=== PATIENT | male | born 1950 | race Caucasian/White ===

== ENCOUNTER 2021-02-11 02:44 | Inpatient (IN) | payer MEDICARE ==
[~2021-02-11] VITALS: Ht 193 cm; Wt 126.7 kg
[~2021-02-11 02:44] MED LIST: ALBU3IS INH; ALBU90OI6; AMOCLA500 PO; ASPI81CH PO; ATOR80 PO; CLOP75 PO; DEXA4 PO; LEVFLO500 PO; LORA.5 PO; LOSA25 PO; METO50ER PO; Nitroglycerin0.4 MG SL; OMEP40CA12 PO; OXYC1L PO; Prednisone20 MG PO; RANI150 PO; Ventolin/Prove6.7 GM INH; Zithromax250 MG PO
[2021-02-11 03:04] LABS: BASOPHILS ABSOLUTE AUTO 0.05 K/mm3 (0.00-0.23); BASOPHILS PERCENT AUTO 1 % (0-2); EOSINOPHILS ABSOLUTE AUTO 0.08 K/mm3 (0.00-0.68); EOSINOPHILS PERCENT AUTO 1 % (0-6); Hematocrit 45.1 % (37.0-53.0); Hemoglobin 15.8 g/dL (13.5-17.5); IMMATURE GRAN ABSOLUTE AUTO 0.02 K/mm3 (0.00-0.10); IMMATURE GRAN PERCENT AUTO 0 % (0-1); LYMPHOCYTES ABSOLUTE AUTO 1.54 K/mm3 (0.84-5.20); LYMPHOCYTES PERCENT AUTO 24 % (21-46); MONOCYTES ABSOLUTE AUTO 0.86 K/mm3 (0.16-1.47); MONOCYTES PERCENT AUTO 13 % (4-13); Mean Corpuscular HGB 33.1 pg (26.0-34.0); Mean Corpuscular Volume 95 fL (80-100); Mean Platelet Volume 11.2 fL (9.1-12.4); NEUTROPHILS ABSOLUTE AUTO 3.92 K/mm3 (1.96-9.15); NEUTROPHILS PERCENT AUTO 61 % (41-73); Platelet Count 196 K/mm3 (150-400); RDW Coefficient Variation 12.3 % (11.7-14.2); RDW Standard Deviation 42.8 fL (35.1-46.3); Red Blood Cell Count 4.77 M/mm3 (4.30-5.90); White Blood Cell Count 6.47 K/mm3 (4.00-11.30)
[2021-02-11 03:25] LABS: Alanine Aminotransfer (ALT/SGP 47 U/L (12-78); Albumin, Blood 3.4 g/dL (3.4-5.0); Albumin/Globulin Ratio 0.9 (0.8-1.8); Alk Phos 88 U/L (50-136); Anion Gap 6 mmol/L (6-16); Aspartate Aminotrans (AST/SGOT 29 U/L (12-37); Bilirubin, Total 0.3 mg/dL (0.1-1.0); Blood Urea Nitrogen 17 mg/dL (8-24); Bun/Creatinine Ratio 21.7 (12.0-20.0); CO2, Blood 25 mmol/L (21-32); Calcium, Blood 9.2 mg/dL (8.5-10.1); Chloride, Blood 106 mmol/L (98-108); Creatinine, Blood 0.78 mg/dL (0.60-1.20); Globulin, Blood 3.8 g/dL (2.2-4.0); Glomerular Filtration Rate >60 (60-); Glucose, Blood 238 mg/dL (70-99); Potassium, Blood 4.2 mmol/L (3.5-5.5); Sodium, Blood 137 mmol/L (136-145); Total Protein, Blood 7.2 g/dL (6.4-8.2); Troponin I 0.059 ng/mL (0.000-0.040)
[2021-02-11 06:18] LABS: International Normalized Ratio 1.19; Prothrombin Time Results 12.4 Sec (9.7-11.5)
[2021-02-11 08:50] LABS: CHOL/HDL RATIO 6.1; Cholesterol 239 mg/dL (50-200); HDL Cholesterol 39 mg/dL (>39); LDL/HDL RATIO 4.5; Low Density Lipoprotein Chol 174 mg/dL (0-110); Triglycerides 130 mg/dL (30-160); Very Low Density Lipoprot Chol 26 mg/dL (6-32)
--- NOTE | 2021-02-11 11:35 | NUR ---
Echocardiogram completed.
--- NOTE | 2021-02-11 14:18 | NUR ---
Report received by phone from primary RN . She states that the pt will be going to the laboratory technical specialist before arriving in PCU 3.
[2021-02-11 15:29] LABS: Influenza A, PCR NEGATIVE (NEGATIVE); Influenza B, PCR NEGATIVE (NEGATIVE); Resp Syncytial Virus, PCR NEGATIVE (NEGATIVE); SARS-Cov-2 (COVID-19) PCR, MMC NEGATIVE (NEGATIVE)
--- NOTE | 2021-02-11 16:42 | NUR ---
Pt arrived from the ED, alert, oriented and cheerful. Able to stand and transfer from [facility] to the bed. States that activity makes his left arm and chest discomfort a little worse. Reports that it is a 6/10 at rest. No dyspnea, no hypoxia, no diaphoresis, no tachypnea. Vital signs are stable. aquatic laborer notified of negative covid test results. Left for angiogram , taken by BRITTA Austin from [facility].
--- NOTE | 2021-02-11 17:51 | NUR ---
Pt returned from the [facility] conservation laborer, right radial site with TR band. Site is without bruising, bleeding or evidence of hematoma. Pt c/o numbness in his right hand, so 1 CC air was removed from the TR band with Rocky from [facility] also present. No bleeding, no hematoma and pt states relief. pt states chest discomfort is about a 7/10, but that he is in no distress.
--- NOTE | 2021-02-11 18:42 | NUR ---
Pt c/o chest pain, 8/10. NO diaphoresis, no dyspnea. No cyanosis, no distress. Given morphine for relief, and pain improved to 6/10. Pt appears very calm and relaxed. No changes on telemetry were noted. Atrial fibrillation, rate 83 bpm. spo2 98% on room air.
--- NOTE | 2021-02-11 19:34 | NUR ---
Pt reported earlier that his chest pain was improved to 6/10; at the time of bedside report now he states that it is better and a 4/10. No nitroglycerin sublingually given, only morphine IV.
--- NOTE | 2021-02-12 01:32 | NUR ---
RIGHT RADIAL TR BAND WITH 13CC OF AIR UPON ASSUMPTION OF CARE AT START OF SHIFT. BEGAN WITH 2CC AIR REMOVAL @ 1914 AND NO SIGNS OF BLEEDING OR HEMATOMA. 2CC OUT OF BAND @1999 WITHOUT ISSUE. VSS. 3 MORE CC OUT AT 2134. 3 MORE OUT AT 2199. FINAL 3CC OF AIR REMOVED AT 0 AND TR BAND REMOVED AT 2300. TEGADERM APPLIED AND SITE IS C/D/I. SENSATION AND COLOR WNL. NO SIGNS OF BLEEDING OR HEMATOMA. ARMBOARD IN PLACE. HEPARIN RESUMED. WILL CONTINUE TO MONITOR SITE.
--- NOTE | 2021-02-12 06:09 | NUR ---
SHIFT SUMMARY PATIENT FOUND TO BE A PLESANT MAN WHO IS A&OX4, WITH SOME ANXIETY AND GENERALIZED WEAKNESS. TR BAND RECOVERED AND OFF BY 2300. SEE PREVIOUS NOTE FOR DETAILS. SITE REMAINS C/D/I WITH NO SIGNS OF BLEEDING OR HEMATOMA. ONE EPISODE OF CP THIS SHIFT 8/10 PAIN WITH GOOD RELIEF WITH MORPHINE. SR IN THE 80'S ON THE MONITOR. HYPERTENSIVE AT TIMES., TROP TRENDING DOWN. NPO AT MIDNIGHT FOR FEED MANAGER TODAY. ON RA. THICK SECRECTIONS AND PRODUCTIVE COUGH NOTED. PATIENT MANAGES OWN TRACH STOMA AN SUCTIONS HIMSELF PRN WITHOUT ISSUE. TOELRATING MECH SOFT DIET BUT POOR APPETITE. USING URINAL TO VOID BUT OFTEN SPILLS AND NEEDS ASSISTANCE. SBA IN ROOM. NO ACUTE CONCERNS AT THIS TIME. WILL CONTINUE PLAN OF CARE UNTIL REPORT GIVEN TO DAYSHIFT RN.
[2021-02-12 06:29] LABS: Hematocrit 46.5 % (37.0-53.0); Hemoglobin 16.2 g/dL (13.5-17.5); Mean Corpuscular HGB 33.5 pg (26.0-34.0); Mean Corpuscular HGB Conc 34.8 g/dL (31.5-36.5); Mean Corpuscular Volume 96 fL (80-100); Mean Platelet Volume 11.8 fL (9.1-12.4); Platelet Count 201 K/mm3 (150-400); RDW Coefficient Variation 12.6 % (11.7-14.2); RDW Standard Deviation 44.7 fL (35.1-46.3); Red Blood Cell Count 4.83 M/mm3 (4.30-5.90); White Blood Cell Count 5.89 K/mm3 (4.00-11.30)
[2021-02-12 08:01] LABS: Alanine Aminotransfer (ALT/SGP 50 U/L (12-78); Albumin, Blood 3.1 g/dL (3.4-5.0); Albumin/Globulin Ratio 0.8 (0.8-1.8); Alk Phos 67 U/L (50-136); Anion Gap 8 mmol/L (6-16); Aspartate Aminotrans (AST/SGOT 49 U/L (12-37); Bilirubin, Total 0.9 mg/dL (0.1-1.0); Blood Urea Nitrogen 16 mg/dL (8-24); CO2, Blood 25 mmol/L (21-32); Calcium, Blood 9.2 mg/dL (8.5-10.1); Chloride, Blood 106 mmol/L (98-108); Glomerular Filtration Rate >60 (60-); Glucose, Blood 146 mg/dL (70-99); Potassium, Blood 4.1 mmol/L (3.5-5.5); Sodium, Blood 139 mmol/L (136-145); Total Protein, Blood 7.1 g/dL (6.4-8.2)
--- NOTE | 2021-02-12 18:19 | NUR ---
SHIFT SUMMARY; ASSUMED CARE AT 0700. A/A/OX4. INDEPENDANT IN ROOM WITH SBA WITH CORDS AND IV TUBING. DENIES CHEST PAIN OR SOB, INTERMITANT HYPERTENSION DURING SHIFT. MEDICATED PER EMAR. TAKEN TO DRAWER MAKER IN AFTERNOON. RIGHT RADIAL SITE WITH TR BAND AND ARM BOARD. CAP REFILL <3, MOVES ALL FIVE FINGERS WITHOUT DIFFICULTY, DENIES PAIN TO SITE, RADIAL PULSE PALPABLE. PLEASANT AND COOPERATIVE WITH CARE. HEPARIN DC'D POST ANGIO. NS STARTED AT 75ML/HR PER EMAR. WILL CONTINUE TO MONITOR AND TREAT UNTIL CHANGE OF SHIFT.
[2021-02-13 04:12] LABS: Hematocrit 44.8 % (37.0-53.0); Hemoglobin 15.6 g/dL (13.5-17.5); Mean Corpuscular HGB 33.1 pg (26.0-34.0); Mean Corpuscular HGB Conc 34.8 g/dL (31.5-36.5); Mean Corpuscular Volume 95 fL (80-100); Mean Platelet Volume 11.5 fL (9.1-12.4); Platelet Count 172 K/mm3 (150-400); RDW Coefficient Variation 12.3 % (11.7-14.2); RDW Standard Deviation 43.2 fL (35.1-46.3); Red Blood Cell Count 4.72 M/mm3 (4.30-5.90); White Blood Cell Count 6.05 K/mm3 (4.00-11.30)
[2021-02-13 05:15] LABS: Alanine Aminotransfer (ALT/SGP 52 U/L (12-78); Albumin, Blood 3.2 g/dL (3.4-5.0); Albumin/Globulin Ratio 0.9 (0.8-1.8); Alk Phos 66 U/L (50-136); Anion Gap 7 mmol/L (6-16); Aspartate Aminotrans (AST/SGOT 43 U/L (12-37); Bilirubin, Total 0.6 mg/dL (0.1-1.0); Blood Urea Nitrogen 15 mg/dL (8-24); Bun/Creatinine Ratio 20.4 (12.0-20.0); CO2, Blood 25 mmol/L (21-32); Chloride, Blood 106 mmol/L (98-108); Creatinine, Blood 0.74 mg/dL (0.60-1.20); Globulin, Blood 3.5 g/dL (2.2-4.0); Glomerular Filtration Rate >60 (60-); Glucose, Blood 121 mg/dL (70-99); Potassium, Blood 4.4 mmol/L (3.5-5.5); Sodium, Blood 138 mmol/L (136-145); Total Protein, Blood 6.7 g/dL (6.4-8.2)
--- NOTE | 2021-02-13 05:59 | NUR ---
NO COMPLIACTIONS WITH R RADIAL SITE. VSS. NO CARDIAC RHYTHM IRREGULARITIES.
--- NOTE | 2021-02-13 09:14 | NUR ---
PATIENT ALERT AND ORIENTED X4. NEURO WNL. TELE SHOWING AFIB WITHHR 70-80'S. DENIES CHEST PAIN/PRESSURE ALL THROUGH THE NIGHT AND THIS AM. BP SLIGHTLY ELEVATED, MORNING MEDS GIVEN. RIGHT RADIAL SITE POST ANGIO WNL. NO SIGNS OF BLEEDING, DRAINAGE, OR HEMATOMA. SIGHT REMAINS SOFT AND NONTENDER. TEGADERM IN PLACE. POST ANGIO CARE AND PRECAUTIONS DISCUSSED. ON ROOM AIR. MANAGING TRACH STOMA HIMSELF. PATIENT STATED HE SUCTIONED HIMSELF AND CAUSED A LITTLE BLEEDING. SPUTUM PINK/CLEAR TINGED THIS AM. USING VOICE BOX TO COMMUNICATE. DENIES SOB. IND IN ROOM. DENIES NEEDS AT THIS TIME. CALL LIGHT IN REACH. WILL CONTINUE TO MONITOR.
[2021-02-13] MEDS ORDERED: OMEP20ER PO (10:56)
--- NOTE | 2021-02-13 11:44 | NUR ---
DISCHARGE: NO ACUTE CHANGES, SEE PREVIOUS NOTE. DISCHARGE INSTRUCITONS REVIEWED WELL POST ANGIO AND STENT PLACEMENT EDUCATION AND RADIAL SITE CARE. IV TAKEN OUT PER PROTOCOL. SON IN TO PICK PATIENT UP. LEFT UNIT VIA WHEELCHAIR WITH ALL PERSONAL BELONGINGS.
== END 2021-02-13 11:15 | disposition home or self-care (01) | DRG 247 ==
LOC: ER 02:44 → ERHOLD 02:45 → PCU 02:45 → ERHOLD 02:45 → PCU 13:53
PROVIDERS: Internal Medicine; Student in an Organized Health Care Education/Training Program; ADMIT Internal Medicine
PROC: 4A023N7 Measurement of Cardiac Sampling and Pressure, Left Heart, Percutaneous Approach (ICD-10-PCS; principal; 2021-02-11)
PROC: B2111ZZ Fluoroscopy of Multiple Coronary Arteries using Low Osmolar Contrast (ICD-10-PCS; 2021-02-11)
PROC: 027036Z Dilation of Coronary Artery, One Artery with Three Drug-eluting Intraluminal Devices, Percutaneous Approach (ICD-10-PCS; 2021-02-12)
DX: I21.4 Non-ST elevation (NSTEMI) myocardial infarction (principal); T82.855A Stenosis of coronary artery stent, initial encounter; I25.10 Atherosclerotic heart disease of native coronary artery without angina pectoris; I10 Essential (primary) hypertension; F17.210 Nicotine dependence, cigarettes, uncomplicated; J44.9 Chronic obstructive pulmonary disease, unspecified; E11.9 Type 2 diabetes mellitus without complications; E78.5 Hyperlipidemia, unspecified; Z85.818 Personal history of malignant neoplasm of other sites of lip, oral cavity, and pharynx; Z95.5 Presence of coronary angioplasty implant and graft; Z98.890 Other specified postprocedural states; I25.2 Old myocardial infarction; Z86.711 Personal history of pulmonary embolism; Z86.718 Personal history of other venous thrombosis and embolism; Z79.82 Long term (current) use of aspirin; Z79.02 Long term (current) use of antithrombotics/antiplatelets; Z79.899 Other long term (current) drug therapy; Y84.0 Cardiac catheterization as the cause of abnormal reaction of the patient, or of later complication, without mention of misadventure at the time of the procedure
CPT/HCPCS: 0241U; 36415; 71046; 76937; 80053; 80061; 82947; 83880; 84484; 85025; 85027; 85347; 85610; 85730; 93005; 93010; 93306; 93454; 96365; 96366; 96375; 99152; 99153; 99285-25; A9270; C1725; C1769; C1874; C1887; C1894; C9113; C9600; C9601; G0378; J1644; J2250; J2270; J3010; J7030; J7040; J7050; Q9967

== ENCOUNTER 2022-01-17 10:39 | Emergency (ER) | payer OTHER ==
[~2022-01-17] VITALS: Ht 193 cm; Wt 136.1 kg
[~2022-01-17 10:39] MED LIST changes: +Amlodipine Bes2.5 MG; +LISI10; +METF500; +OMEP20ER PO; +XARELTO20 MG
[2022-01-17 11:39] LABS: Influenza A, PCR NEGATIVE (NEGATIVE); Influenza B, PCR NEGATIVE (NEGATIVE); Resp Syncytial Virus, PCR NEGATIVE (NEGATIVE); SARS-Cov-2 (COVID-19) PCR, MMC NEGATIVE (NEGATIVE)
== END 2022-01-17 12:00 | disposition home or self-care (01) ==
LOC: ER 10:39
PROVIDERS: Emergency Medicine
DX: R06.02 Shortness of breath (principal); I10 Essential (primary) hypertension; E11.9 Type 2 diabetes mellitus without complications; Z93.0 Tracheostomy status; Z79.899 Other long term (current) drug therapy; Z79.82 Long term (current) use of aspirin; Z79.84 Long term (current) use of oral hypoglycemic drugs; Z87.891 Personal history of nicotine dependence; Z20.822 Contact with and (suspected) exposure to COVID-19
CPT/HCPCS: 0241U; 71046

== ENCOUNTER 2022-04-28 07:27 | Emergency (ER) | payer OTHER ==
[~2022-04-28] VITALS: Ht 193 cm; Wt 126.1 kg
[2022-04-28 07:57] LABS: BASOPHILS ABSOLUTE AUTO 0.02 K/mm3 (0.00-0.23); BASOPHILS PERCENT AUTO 0 % (0-2); EOSINOPHILS ABSOLUTE AUTO 0.19 K/mm3 (0.00-0.68); EOSINOPHILS PERCENT AUTO 3 % (0-6); Hematocrit 47.1 % (37.0-53.0); Hemoglobin 16.8 g/dL (13.5-17.5); Mean Corpuscular HGB 32.3 pg (26.0-34.0); Mean Corpuscular HGB Conc 35.7 g/dL (31.5-36.5); Mean Corpuscular Volume 91 fL (80-100); Mean Platelet Volume 11.8 fL (9.1-12.4); Platelet Count 166 K/mm3 (150-400); RDW Coefficient Variation 12.3 % (11.7-14.2); RDW Standard Deviation 40.7 fL (35.1-46.3); White Blood Cell Count 7.02 K/mm3 (4.00-11.30)
[2022-04-28 07:58] LABS: IMMATURE GRAN ABSOLUTE AUTO 0.03 K/mm3 (0.00-0.10); IMMATURE GRAN PERCENT AUTO 0 % (0-1); LYMPHOCYTES ABSOLUTE AUTO 1.36 K/mm3 (0.84-5.20); LYMPHOCYTES PERCENT AUTO 19 % (21-46); MONOCYTES ABSOLUTE AUTO 0.58 K/mm3 (0.16-1.47); MONOCYTES PERCENT AUTO 8 % (4-13); NEUTROPHILS ABSOLUTE AUTO 4.84 K/mm3 (1.96-9.15); NEUTROPHILS PERCENT AUTO 69 % (41-73)
[2022-04-28 08:10] LABS: Albumin, Blood 3.3 g/dL (3.4-5.0); Albumin/Globulin Ratio 0.8 (0.8-1.8); Bilirubin, Total 0.6 mg/dL (0.1-1.0); Bun/Creatinine Ratio 18.5 (12.0-20.0); Creatinine, Blood 0.76 mg/dL (0.60-1.20); Globulin, Blood 4.3 g/dL (2.2-4.0); Magnesium, Blood 1.8 mg/dL (1.6-2.4); Potassium, Blood 3.9 mmol/L (3.5-5.5); Total Protein, Blood 7.6 g/dL (6.4-8.2)
[2022-04-28 08:58] LABS: Influenza A, PCR NEGATIVE (NEGATIVE); Influenza B, PCR NEGATIVE (NEGATIVE); Resp Syncytial Virus, PCR NEGATIVE (NEGATIVE); SARS-Cov-2 (COVID-19) PCR, MMC NEGATIVE (NEGATIVE)
[2022-04-28] MEDS ORDERED: DOXY100 PO (10:14)
[2022-04-28] MEDS ORDERED: CEFP200 PO (10:14)
== END 2022-04-28 11:28 | disposition home or self-care (01) ==
LOC: ER 07:27
PROVIDERS: Emergency Medicine
DX: J18.9 Pneumonia, unspecified organism (principal); T17.890A Other foreign object in other parts of respiratory tract causing asphyxiation, initial encounter; K52.9 Noninfective gastroenteritis and colitis, unspecified; I10 Essential (primary) hypertension; E11.9 Type 2 diabetes mellitus without complications; I25.2 Old myocardial infarction; Z79.899 Other long term (current) drug therapy; Z79.82 Long term (current) use of aspirin; Z79.84 Long term (current) use of oral hypoglycemic drugs; Z79.02 Long term (current) use of antithrombotics/antiplatelets; Z95.5 Presence of coronary angioplasty implant and graft; Z20.822 Contact with and (suspected) exposure to COVID-19; Z93.0 Tracheostomy status
CPT/HCPCS: 0241U; 71045; 74177; 80053; 83605; 83690; 83735; 85025; 93005; 93010; 96374; 96375; 99285-25; J0456; J0696; J2270; J7030; J7050; Q9967

== ENCOUNTER 2022-11-12 18:15 | Emergency (ER) | payer OTHER ==
[~2022-11-12] VITALS: Ht 193 cm; Wt 131.5 kg
[~2022-11-12 18:15] MED LIST changes: +CEFP200 PO; +DOXY100 PO
[2022-11-12 19:09] LABS: BASOPHILS ABSOLUTE AUTO 0.05 K/mm3 (0.00-0.23); BASOPHILS PERCENT AUTO 1 % (0-2); EOSINOPHILS ABSOLUTE AUTO 0.05 K/mm3 (0.00-0.68); EOSINOPHILS PERCENT AUTO 1 % (0-6); Hematocrit 44.9 % (37.0-53.0); Hemoglobin 16.4 g/dL (13.5-17.5); IMMATURE GRAN ABSOLUTE AUTO 0.01 K/mm3 (0.00-0.10); IMMATURE GRAN PERCENT AUTO 0 % (0-1); LYMPHOCYTES ABSOLUTE AUTO 1.47 K/mm3 (0.84-5.20); LYMPHOCYTES PERCENT AUTO 22 % (21-46); MONOCYTES ABSOLUTE AUTO 0.67 K/mm3 (0.16-1.47); MONOCYTES PERCENT AUTO 10 % (4-13); Mean Corpuscular HGB 34.2 pg (26.0-34.0); Mean Corpuscular HGB Conc 36.5 g/dL (31.5-36.5); Mean Corpuscular Volume 94 fL (80-100); Mean Platelet Volume 11.5 fL (9.1-12.4); NEUTROPHILS ABSOLUTE AUTO 4.38 K/mm3 (1.96-9.15); NEUTROPHILS PERCENT AUTO 66 % (41-73); Platelet Count 213 K/mm3 (150-400); RDW Standard Deviation 41.5 fL (35.1-46.3); Red Blood Cell Count 4.79 M/mm3 (4.30-5.90); White Blood Cell Count 6.63 K/mm3 (4.00-11.30)
[2022-11-12 19:22] LABS: Albumin, Blood 3.7 g/dL (3.4-5.0); Bilirubin, Total 0.4 mg/dL (0.1-1.0); Bun/Creatinine Ratio 15.2 (12.0-20.0); Calcium, Blood 9.7 mg/dL (8.5-10.1); Creatinine, Blood 0.86 mg/dL (0.60-1.20); Globulin, Blood 3.7 g/dL (2.2-4.0); Total Protein, Blood 7.4 g/dL (6.4-8.2)
[2022-11-12 21:50] VITALS: BP 148/82
[2022-11-12 22:08] LABS: Glucose, Blood 177 mg/dL (70-99)
== END 2022-11-12 23:19 | disposition home or self-care (01) ==
LOC: ER 18:15
PROVIDERS: Emergency Medicine
DX: R07.9 Chest pain, unspecified (principal); Z79.82 Long term (current) use of aspirin; Z79.84 Long term (current) use of oral hypoglycemic drugs; Z79.899 Other long term (current) drug therapy; I10 Essential (primary) hypertension; E11.9 Type 2 diabetes mellitus without complications; Z87.891 Personal history of nicotine dependence; I25.2 Old myocardial infarction
CPT/HCPCS: 71046; 80053; 82947; 84484; 85025; 93005; 93010; 99284-25

== ENCOUNTER 2023-07-27 08:10 | Inpatient (IN) | payer OTHER ==
[~2023-07-27] VITALS: Ht 193 cm; Wt 122.1 kg
[~2023-07-27 08:10] MED LIST changes: -LISI10; +LISI10 PO; +METR500 PO; -XARELTO20 MG; +XARELTO20 MG PO
[2023-07-27 08:32] LABS: BASOPHILS ABSOLUTE AUTO 0.03 K/mm3 (0.00-0.23); BASOPHILS PERCENT AUTO 0 % (0-2); EOSINOPHILS ABSOLUTE AUTO 0.03 K/mm3 (0.00-0.68); EOSINOPHILS PERCENT AUTO 0 % (0-6); Hematocrit 49.7 % (37.0-53.0); Hemoglobin 17.8 g/dL (13.5-17.5); IMMATURE GRAN ABSOLUTE AUTO 0.05 K/mm3 (0.00-0.10); IMMATURE GRAN PERCENT AUTO 0 % (0-1); LYMPHOCYTES ABSOLUTE AUTO 1.77 K/mm3 (0.84-5.20); LYMPHOCYTES PERCENT AUTO 14 % (21-46); MONOCYTES ABSOLUTE AUTO 1.18 K/mm3 (0.16-1.47); MONOCYTES PERCENT AUTO 9 % (4-13); Mean Corpuscular HGB 32.8 pg (26.0-34.0); Mean Corpuscular HGB Conc 35.8 g/dL (31.5-36.5); Mean Corpuscular Volume 92 fL (80-100); Mean Platelet Volume 11.7 fL (9.1-12.4); NEUTROPHILS ABSOLUTE AUTO 9.47 K/mm3 (1.96-9.15); NEUTROPHILS PERCENT AUTO 76 % (41-73); Platelet Count 261 K/mm3 (150-400); RDW Coefficient Variation 12.2 % (11.7-14.2); RDW Standard Deviation 40.7 fL (35.1-46.3); Red Blood Cell Count 5.43 M/mm3 (4.30-5.90); White Blood Cell Count 12.53 K/mm3 (4.00-11.30)
[2023-07-27 08:52] LABS: Albumin, Blood 3.6 g/dL (3.4-5.0); Albumin/Globulin Ratio 0.9 (0.8-1.8); Bilirubin, Total 1.4 mg/dL (0.1-1.0); Bun/Creatinine Ratio 23.8 (12.0-20.0); Calcium, Blood 9.2 mg/dL (8.5-10.1); Creatinine, Blood 0.8 mg/dL (0.60-1.20); Globulin, Blood 3.8 g/dL (2.2-4.0); Total Protein, Blood 7.4 g/dL (6.4-8.2)
[2023-07-27 09:02] LABS: International Normalized Ratio 1.14; Prothrombin Time Results 12.1 Sec (9.7-11.5)
[2023-07-27] MEDS ORDERED: Potassium Chloride 40 MEQ in NS 250 ML IV ONE (09:35)
[2023-07-27] MEDS ORDERED: NS 1,000 ML IV SCH (09:35)
[2023-07-27] MEDS ORDERED: Mag Sulfate 1 GM/D5% 100ML 100 ML IV ONE (09:35)
[2023-07-27] MEDS ORDERED: HYDROmorphone HCl/Pf 1MG SYR IV ONE (10:55)
[2023-07-27] MEDS ORDERED: Acetaminophen 325 MG TABLET PO PRN (11:05)
[2023-07-27] MEDS ORDERED: HYDROmorphone HCl/Pf 1MG SYR IV PRN (11:10)
[2023-07-27] MEDS ORDERED: Potassium Chl 20MEQ/Water100ML 100 ML IV STA (14:39)
[2023-07-27] MEDS ORDERED: Insulin Human Lispro 100 Units/ML 3ML Syringe SC SCH (16:30)
[2023-07-27 17:06] LABS: Adenovirus F 40/41 Not Detected (NOT DETECT); Astrovirus Not Detected (NOT DETECT); Campylobacter Sp Not Detected (NOT DETECT); Cryptosporidium Not Detected (NOT DETECT); Cyclospora Cayetanensis Not Detected (NOT DETECT); E. Coli O157 Not Detected (NOT DETECT); Entamoeba Histolytica Not Detected (NOT DETECT); Enteroaggregative E. coli-EAEC Not Detected (NOT DETECT); Enteropathogenic E. coli-EPEC Not Detected (NOT DETECT); Enterotoxigenic E. coli-ETEC Not Detected (NOT DETECT); Giardia Lamblia Not Detected (NOT DETECT); Norovirus GI/GII Not Detected (NOT DETECT); Plesiomonas Shigelloides Not Detected (NOT DETECT); Rotavirus A Not Detected (NOT DETECT); Salmonella Sp Not Detected (NOT DETECT); Sapovirus Not Detected (NOT DETECT); Shiga Toxin-prod E. coli-STEC Not Detected (NOT DETECT); Shigella/Enteroin E. coli-EIEC Not Detected (NOT DETECT); Vibrio Cholerae Not Detected (NOT DETECT); Vibrio Sp Not Detected (NOT DETECT); Yersinia Enterocolitica Not Detected (NOT DETECT)
--- NOTE | 2023-07-27 17:29 | NUR ---
REPORT FROM BRITTA CLAIRE.
[2023-07-27 17:34] VITALS: BP 187/111
[2023-07-27 17:35] VITALS: BP 187/111
[2023-07-27 19:05] VITALS: BP 181/106
--- NOTE | 2023-07-27 19:28 | NUR ---
DAY SHIFT SUMMARY: A&Ox4. PLEASANT AND COOPERATIVE WITH CARE. CALLS APPROPRIATELY AND IS ABLE TO ADVOCATE NEEDS EFFECTIVELY. COMMUNICATES WITH THE USE OF ELECTRONIC COMMUNICATOR DUE TO Hx THROAT CANCER LEAVING HIM UNABLE TO SPEAK, BIOLOGICALLY. INDEPENDENT WITH AMBULATION. SEVERE ABDOMINAL DISTENTION WITHOUT RADIOLOGIC EVIDENCE OF OBSTRUCTION. PLAN FOR PAIN AND N/V CONTROL. REPORT TO ONCOMING RN.
[2023-07-27] MEDS ORDERED: AmLODIPine Besylate 5 MG Tab PO SCH (19:55)
[2023-07-27] MEDS ORDERED: Lisinopril 10 MG Tab PO SCH (20:00)
[2023-07-27] MEDS ORDERED: Ondansetron HCl 2 MG / ML 2ML Vial IV PRN (22:05)
[2023-07-28] MEDS ORDERED: OxyCODONE HCL 5 MG TAB PO PRN (03:10)
[2023-07-28 04:53] VITALS: BP 106/74
[2023-07-28 05:11] LABS: BASOPHILS ABSOLUTE AUTO 0.03 K/mm3 (0.00-0.23); BASOPHILS PERCENT AUTO 0 % (0-2); EOSINOPHILS ABSOLUTE AUTO 0.06 K/mm3 (0.00-0.68); EOSINOPHILS PERCENT AUTO 1 % (0-6); Hemoglobin 15.2 g/dL (13.5-17.5); IMMATURE GRAN ABSOLUTE AUTO 0.05 K/mm3 (0.00-0.10); IMMATURE GRAN PERCENT AUTO 1 % (0-1); LYMPHOCYTES ABSOLUTE AUTO 1.78 K/mm3 (0.84-5.20); LYMPHOCYTES PERCENT AUTO 18 % (21-46); MONOCYTES ABSOLUTE AUTO 1.31 K/mm3 (0.16-1.47); MONOCYTES PERCENT AUTO 13 % (4-13); Mean Corpuscular HGB 32.9 pg (26.0-34.0); Mean Corpuscular HGB Conc 35.3 g/dL (31.5-36.5); Mean Corpuscular Volume 93 fL (80-100); Mean Platelet Volume 12.4 fL (9.1-12.4); NEUTROPHILS ABSOLUTE AUTO 6.91 K/mm3 (1.96-9.15); NEUTROPHILS PERCENT AUTO 68 % (41-73); Platelet Count 212 K/mm3 (150-400); RDW Coefficient Variation 12.4 % (11.7-14.2); RDW Standard Deviation 42.5 fL (35.1-46.3); Red Blood Cell Count 4.62 M/mm3 (4.30-5.90); White Blood Cell Count 10.14 K/mm3 (4.00-11.30)
[2023-07-28 05:41] LABS: Albumin, Blood 3.1 g/dL (3.4-5.0); Bun/Creatinine Ratio 25.5 (12.0-20.0); Calcium, Blood 8.7 mg/dL (8.5-10.1); Creatinine, Blood 0.86 mg/dL (0.60-1.20); Globulin, Blood 3.1 g/dL (2.2-4.0); Potassium, Blood 2.7 mmol/L (3.5-5.5); Total Protein, Blood 6.2 g/dL (6.4-8.2)
--- NOTE | 2023-07-28 06:42 | NUR ---
SHIFT SUMMARY PT A&OX4 AND PLEASANT. PT'S BP WAS ELEVATED AT START OF SHIFT WITH A BP OF 181/106. HOSPITLIST CALLED AND ORDERS GIVEN. PT ALSO C/O ABD PAIN AND NAUSEA T/O NIGHT. MEDICATED PER EMAR WITH LITTLE RELIEF. NEW ORDER GIVEN FOR OXYCODONE WITH GOOD EFFECT. PT IND IN ROOM. ABLE TO MAKE NEEDS KNOWN USING ELECTONIC SPEACH DEVICE, HOWEVER PT ONLY C/O PAIN WHEN ASKED. PT DID NO CALL FOR PAIN MEDS DESPITE EDUCATION ON WHEN AND HOW TO CALL. BED IN LOWEST POSITION AND CALL LIGHT IN REACH.
[2023-07-28] MEDS ORDERED: Potassium Chloride 10 Meq Tablet SA PO ONE (07:00)
[2023-07-28] MEDS ORDERED: Potassium Chloride 40 MEQ in NS 250 ML IV ONE ×2 (07:10→15:10)
[2023-07-28] MEDS ORDERED: Lactated Ringer's 1,000 ML IV SCH (07:20)
[2023-07-28 07:35] VITALS: BP 106/71
[2023-07-28] MEDS ORDERED: NS 250 ML IV PRN (07:40)
[2023-07-28] MEDS ORDERED: Atorvastatin 40 MG Tab PO SCH (09:00)
[2023-07-28] MEDS ORDERED: Aspirin 81 MG Chew PO SCH (09:00)
[2023-07-28] MEDS ORDERED: Metoprolol Succinate 50 MG TABCR PO SCH (09:00)
[2023-07-28 09:31] VITALS: BP 104/68
[2023-07-28 14:47] LABS: Creatinine, Blood 0.96 mg/dL (0.60-1.20); Potassium, Blood 3.2 mmol/L (3.5-5.5)
[2023-07-28 15:18] VITALS: BP 107/78
--- NOTE | 2023-07-28 16:29 | NUR ---
SHIFT SUMMARY MR ROLON IS OX4. UP INDEPENDENTLY TO THE BATHROOM. VOIDING WELL PER PT. C/O SOME LOOSE STOOL. ON TELE IN AFIB, NO CALLS FROM DYE REEL OPERATOR HELPER. ABDOMINAL DISTENSION, FIRMNESS AND PAIN, PAIN HELPED WITH OXY PO X 1 SO FAR THIS SHIFT. SET UP TO SELF SUCTION STOMA BY RESP THERAPIST. EXPECTORATING THICK YELLOW/BROWN SPUTUM. VISITORS AT BEDSIDE. ON SECOND POTASSIUM IV INFUSION. BED LOW, CALL LIGHT IN REACH.
[2023-07-28] MEDS ORDERED: Rivaroxaban 10 MG Tab PO SCH (17:00)
--- NOTE | 2023-07-28 17:22 | NUR ---
RN NOTE/MD CALL MR ROLON SAID THAT HE ONLY TAKES 10MG XARELTO. MED REC ALTERED. GIVEN 10MG PO AND DR LIND CALLED AND NOTIFIED OF CHANGE IN DOSE.
[2023-07-28 19:08] VITALS: BP 125/87
[2023-07-28] MEDS ORDERED: Banana Flakes/Tos 1 EA Powder Pack PO SCH (21:00)
[2023-07-29 03:19] VITALS: BP 121/75
[2023-07-29 04:48] LABS: BASOPHILS ABSOLUTE AUTO 0.03 K/mm3 (0.00-0.23); BASOPHILS PERCENT AUTO 0 % (0-2); EOSINOPHILS ABSOLUTE AUTO 0.04 K/mm3 (0.00-0.68); EOSINOPHILS PERCENT AUTO 0 % (0-6); Hematocrit 45.1 % (37.0-53.0); Hemoglobin 16.1 g/dL (13.5-17.5); IMMATURE GRAN ABSOLUTE AUTO 0.04 K/mm3 (0.00-0.10); IMMATURE GRAN PERCENT AUTO 0 % (0-1); LYMPHOCYTES ABSOLUTE AUTO 1.26 K/mm3 (0.84-5.20); LYMPHOCYTES PERCENT AUTO 12 % (21-46); MONOCYTES ABSOLUTE AUTO 1.44 K/mm3 (0.16-1.47); MONOCYTES PERCENT AUTO 14 % (4-13); Mean Corpuscular HGB 33.5 pg (26.0-34.0); Mean Corpuscular HGB Conc 35.7 g/dL (31.5-36.5); Mean Corpuscular Volume 94 fL (80-100); Mean Platelet Volume 12.2 fL (9.1-12.4); NEUTROPHILS ABSOLUTE AUTO 7.72 K/mm3 (1.96-9.15); NEUTROPHILS PERCENT AUTO 73 % (41-73); Platelet Count 233 K/mm3 (150-400); RDW Coefficient Variation 12.5 % (11.7-14.2); RDW Standard Deviation 43.6 fL (35.1-46.3); Red Blood Cell Count 4.81 M/mm3 (4.30-5.90); White Blood Cell Count 10.53 K/mm3 (4.00-11.30)
--- NOTE | 2023-07-29 05:05 | NUR ---
CARPET LAYER HELPER PATIENT IS A&4X4, VITALS ARE STABLE, ON TELE RUNNING AFIB. PATIENT CALLS APPROPRIATELY WHEN NEEDING HELP. PATIENT HAS A STOMA FROM AN OLD TRACHEOSTOMY THAT WAS REMOVED. HIS VOICE DOESN'T COME OUT WHEN HE SPEEKS SO HE WHISPERS. PATIENT ABDOMEN IS STILL DISTENDED FROM PSEUDO ABMINAL OBSTRICTION.PATIENT COMPLAINED OF AND PRN HARI WERE GIVEN.
[2023-07-29 05:11] LABS: Bun/Creatinine Ratio 31.1 (12.0-20.0); Calcium, Blood 8.9 mg/dL (8.5-10.1); Creatinine, Blood 0.71 mg/dL (0.60-1.20); Potassium, Blood 3.2 mmol/L (3.5-5.5)
[2023-07-29 07:16] VITALS: BP 132/85
[2023-07-29] MEDS ORDERED: Potassium Chloride 40 MEQ in NS 250 ML IV ONE ×2 (07:30→12:15)
[2023-07-29 11:26] VITALS: BP 151/106
--- NOTE | 2023-07-29 15:01 | NUR ---
SHIFT SUMMARY MR ROLON DESCRIBES INCREASED ABDOMINAL PAIN TODAY WELL BACK PAIN. HE HAS TAKEN OXYCODONE THIS AM WELL DILAUDID FOR PAIN. ABDOMINAL XRAY DONE THIS AM. MR ROLON HAD SOME EPISODES OF HEAVY BREATHING, FEELING SOB AFTER GOING TO THE BATHROOM AND XRAY. AT THIS TIME HR AND BP WERE ELEVATED BUT SATS WERE HIGH 90S ON ROOM AIR. RESP THERAPIST CAME TO BEDSIDE AND REMOVED PLUGS OF THICK MUCUS FROM HIS STOMA. HE APPEARS MUCH IMPROVED SINCE THE MUCUS PLUGS WERE REMOVED, BREATHING EASIER, VITAL SIGNS MORE STABLE. ON TELEMETRY, OBIEE CONSULTANT CALLED WHEN HEART RATE WAS ELEVATED TO 130S. DR ANDERSON NOTIFIED. PT PASSED WHAT HE DESCRIBED LARGE LOOSE STOOL. HE IS INDEPENDENT TO THE BATHROOM WITH STEADY GAIT. BED LOW, CALL LIGHT IN REACH.
[2023-07-29 15:22] VITALS: BP 121/84
[2023-07-29] MEDS ORDERED: Rivaroxaban 10 MG Tab PO SCH (17:00)
[2023-07-29 20:03] VITALS: BP 125/85
[2023-07-30 02:57] VITALS: BP 142/96
[2023-07-30 04:45] LABS: Bun/Creatinine Ratio 29.9 (12.0-20.0); Calcium, Blood 9.4 mg/dL (8.5-10.1); Creatinine, Blood 0.74 mg/dL (0.60-1.20); Potassium, Blood 3.6 mmol/L (3.5-5.5)
--- NOTE | 2023-07-30 05:39 | NUR ---
MEDICAL REVIEW COORDINATOR SUMMARY PT A/OX4. PT CONTINUES TO HAVE PAIN IN LOWER ABDOMEN, RADIATING TO LEFT FLANK/BACK. PT REFUSED BANANNA FLAKES FOR LOOSE STOOLS. PT DOES NOT LIKE THEM AND FEELS THEY ARE NOT HELPING. PT HAD A FEW EPISODES OF RAPID BREATHING AND ATTEMPTS TO CLEAR MUCOUS FROM STOMA. PT ABLE TO CLEAR ON OWN WITHOUT ASSISTANCE. PT ABLE TO MAKE NEEDS KNOWN. CALL LIGHT ACCESSIBLE.
[2023-07-30 07:26] VITALS: BP 121/85
[2023-07-30] MEDS ORDERED: Azithromycin 250 MG Tab PO SCH (14:00)
--- NOTE | 2023-07-30 15:54 | NUR ---
SHIFT SUMMARY MR ROLON CONTINUES TO HAVE LIQUID STOOL. SAMPLE SENT TO LAB. COLLECTION CONTAINERS IN THE TOILET AND PT EDUCATED ON NEED TO MEASURE VOLUMES/EPISODES. ABDOMEN IS TIGHT AND DISTENDED. FOOD REQUEST FOR COMPLEX STARCHES AND PODIATRY DOCTOR REFERAL ENTERED INTO Your.MD. HE REQUESTED OXY BUT FELL ASLEEP, SO WILL BE OFFERED MEDICATION WHEN HE AWAKENS. HUMIDIFICATION TO STOMA. PT HAS BEEN ABLE TO CLEAR THICK SPUTUM ON HIS OWN THROUGH COUGHING. UP INDEPENDENTLY TO THE BATHROOM. SLEEPNG NOW - BED LOW, CALL LIGHT IN REACH.
[2023-07-30 16:30] VITALS: BP 113/71
[2023-07-30 21:04] VITALS: BP 115/75
[2023-07-31 03:41] VITALS: BP 145/96
--- NOTE | 2023-07-31 04:57 | NUR ---
SECTION CREWS ACTIVITIES CLERK SUMMARY NO ACUTE CHANGES. PT IS A/OX4. PT CONTINUES TO HAVE PAIN IN ABDOMEN AND SIDE. PT IS CONTINUES TO HAVE LOOSE WATERY STOOLS. PT HAS 2 STOOLS DURING SHIFT. ONE UNMEASURED. AND ONE MEASURED 300MLS. PT ABLE TO MAKE NEEDS KNOWN. CALL LIGHT IS ACCESSIBLE.
[2023-07-31 06:25] LABS: Hematocrit 43.4 % (37.0-53.0); Hemoglobin 15.5 g/dL (13.5-17.5); Mean Corpuscular HGB 33.2 pg (26.0-34.0); Mean Corpuscular HGB Conc 35.7 g/dL (31.5-36.5); Mean Corpuscular Volume 93 fL (80-100); Mean Platelet Volume 11.5 fL (9.1-12.4); Platelet Count 233 K/mm3 (150-400); RDW Coefficient Variation 12.6 % (11.7-14.2); RDW Standard Deviation 42.9 fL (35.1-46.3); Red Blood Cell Count 4.67 M/mm3 (4.30-5.90); White Blood Cell Count 6.39 K/mm3 (4.00-11.30)
[2023-07-31 06:43] LABS: Albumin, Blood 2.9 g/dL (3.4-5.0); Albumin/Globulin Ratio 0.8 (0.8-1.8); Bilirubin, Total 0.8 mg/dL (0.1-1.0); Bun/Creatinine Ratio 33.9 (12.0-20.0); Calcium, Blood 8.8 mg/dL (8.5-10.1); Creatinine, Blood 0.71 mg/dL (0.60-1.20); Globulin, Blood 3.8 g/dL (2.2-4.0); Potassium, Blood 2.9 mmol/L (3.5-5.5); Total Protein, Blood 6.7 g/dL (6.4-8.2)
[2023-07-31] MEDS ORDERED: Potassium Chloride 40 MEQ in NS 250 ML IV ONE (06:55)
[2023-07-31 07:11] VITALS: BP 112/85
[2023-07-31] MEDS ORDERED: Enoxaparin 40 MG/0.4 ML SYR SC SCH (09:00)
[2023-07-31] MEDS ORDERED: Potassium Chloride 20 MEQ/15 ML UDC PO SCH (11:00)
[2023-07-31 12:23] LABS: Bun/Creatinine Ratio 30.8 (12.0-20.0); Calcium, Blood 9.1 mg/dL (8.5-10.1); Creatinine, Blood 0.88 mg/dL (0.60-1.20); Potassium, Blood 2.9 mmol/L (3.5-5.5)
[2023-07-31 14:38] VITALS: BP 115/94
[2023-07-31] MEDS ORDERED: Oxymetazoline 0.05% Nasal Relief Spray 15mL BTL PRN (16:20)
[2023-07-31] MEDS ORDERED: Potassium Chloride 40 MEQ in NS 250 ML IV SCH (16:40)
--- NOTE | 2023-07-31 16:59 | NUR ---
SHIFT SUMMARY: PT IS A/O X 4, IND IN ROOM PLEASANT AND COOPERATIVE. ABLE TO MAKE NEEDS KNOWN UTILIZING A VOICE BOX. PT REPORTED HE HAD ONLY ONE WATERY STOOL THIS MORNING SO FAR. HE HAS HAD NO OTHER COMPLAINTS. STOMA IS CLEAR OF MUCOUS. PT SELF SUCTIONS. IS ON RA. URINATING WITHOUT DIFFICULTY.
[2023-07-31 19:33] VITALS: BP 119/75
[2023-08-01 03:07] VITALS: BP 122/81
[2023-08-01 05:15] LABS: Albumin, Blood 2.9 g/dL (3.4-5.0); Anion Gap 11 mmol/L (3-11); Blood Urea Nitrogen 22 mg/dL (8-24); Bun/Creatinine Ratio 26.7 (12.0-20.0); CO2, Blood 23 mmol/L (21-32); Chloride, Blood 104 mmol/L (98-108); Creatinine, Blood 0.82 mg/dL (0.60-1.20); Glomerular Filtration Rate 95 (60-); Glucose, Blood 199 mg/dL (70-99); Phosphorus, Blood 3.1 mg/dL (2.5-4.9); Potassium, Blood 3.7 mmol/L (3.5-5.5); Sodium, Blood 134 mmol/L (136-145)
--- NOTE | 2023-08-01 05:40 | NUR ---
PODOPEDIATRICIAN SUMMARY NO ACUTE CHANGES. PT HAD 1 LOOSE STOOL OVER NIGHT. POTASSIUM INFUSING AT SLOWER RATE TO TOLERATE. THIS AM LABS POTASSIUM 3.7. PT CONTINUES TO C/O OF ABD PAIN. PT ABLE TO MAKE NEEDS KNOWN. CALL LIGHT ACCESSIBLE.
[2023-08-01 07:39] VITALS: BP 112/80
[2023-08-01] MEDS ORDERED: Potassium Chloride 10 Meq Tablet SA PO ONE (11:00)
[2023-08-01 15:43] VITALS: BP 110/74
[2023-08-01] MEDS ORDERED: BANATROL PLUS1 EAC1 PO (16:03)
--- NOTE | 2023-08-01 17:05 | NUR ---
DISCHARGE SUMMARY: PT DISCHARGED HOME TODAY. EDUCATED PT ON DISCHARGE INSTRUCTIONS AND MEDICATIONS. PT V/U. HARD SCRIPTS FOR BMP LAB SENT WITH PT AND ADVISED PT TO GET LAB DRAW SCHEDULED. PT V/U. PT ASSISTED WITH PACKING UP BELONGINGS. PT ESCORTED TO POV VIA WHEELCHAIR BY RENEWABLE ENERGY DIVISION MANAGER TO POV WITH DAUGHTER. BELONGINGS SENT WITH DAUGHTER.
[2023-08-03 07:34] LABS: OVA AND PARASITE,FECAL INTERP Negative (Negative)
== END 2023-08-01 16:49 | disposition home or self-care (01) | DRG 392 ==
LOC: ER 08:10 → ERHOLD 08:11 → MEDS 17:30
PROVIDERS: Emergency Medicine; Student in an Organized Health Care Education/Training Program; ADMIT Hospitalist
DX: K59.81 Ogilvie syndrome (principal); E87.1 Hypo-osmolality and hyponatremia; E87.6 Hypokalemia; E78.5 Hyperlipidemia, unspecified; I25.2 Old myocardial infarction; E11.9 Type 2 diabetes mellitus without complications; I48.91 Unspecified atrial fibrillation; J44.9 Chronic obstructive pulmonary disease, unspecified; I10 Essential (primary) hypertension; I25.10 Atherosclerotic heart disease of native coronary artery without angina pectoris; E83.42 Hypomagnesemia; K63.89 Other specified diseases of intestine; K75.81 Nonalcoholic steatohepatitis (NASH); E66.9 Obesity, unspecified; E86.0 Dehydration; Z86.73 Personal history of transient ischemic attack (TIA), and cerebral infarction without residual deficits; Z86.718 Personal history of other venous thrombosis and embolism; Z79.01 Long term (current) use of anticoagulants; Z85.21 Personal history of malignant neoplasm of larynx; Z93.0 Tracheostomy status; Z86.711 Personal history of pulmonary embolism; Z95.5 Presence of coronary angioplasty implant and graft; Z98.890 Other specified postprocedural states; F10.90 Alcohol use, unspecified, uncomplicated; Z79.82 Long term (current) use of aspirin; Z79.811 Long term (current) use of aromatase inhibitors; Z79.84 Long term (current) use of oral hypoglycemic drugs; Z79.899 Other long term (current) drug therapy; Z92.3 Personal history of irradiation; Z87.19 Personal history of other diseases of the digestive system; Z68.35 Body mass index [BMI] 35.0-35.9, adult
CPT/HCPCS: 31720; 36415; 71045; 74018; 74177; 80048; 80053; 80069; 82947; 83036; 83605; 83690; 83735; 83880; 84132; 84443; 85025; 85027; 85610; 87015; 87045; 87046; 87205; 87507; 87899; 93005; 93010; 94760; 94762; 96361; 96365-59; 96366; 96367; 96375; 96376; 99285-25; A9270; G0378; J1170; J1650; J2405; J3475; J3480; J7030; J7050; J7120; Q9967

== ENCOUNTER 2024-05-11 20:53 | Emergency (ER) | payer MEDICARE ==
[~2024-05-11] VITALS: Ht 188 cm; Wt 108.9 kg
[~2024-05-11 20:53] MED LIST changes: +BANATROL PLUS1 EAC1 PO
[2024-05-11 22:39] LABS: Source, Urine Foley catheter
[2024-05-11 22:41] LABS: Bilirubin, Urine Neg (Neg); Blood, Urine 1+ (Neg); Glucose Qualitative, Urine 4+ (Neg); Ketones, Urine 3+ (Neg); Leukocyte Esterase, Urine Neg (Neg); Nitrite, Urine Neg (Neg); Protein, Urine 2+ (Neg); Urobilinogen, Urine NORM (Normal)
[2024-05-11 22:45] LABS: Appearance, Urine Clear (Clear); Color, Urine Yellow (P-Yellow)
[2024-05-11 22:49] LABS: BASOPHILS ABSOLUTE AUTO 0.04 K/mm3 (0.00-0.23); BASOPHILS PERCENT AUTO 0 % (0-2); EOSINOPHILS ABSOLUTE AUTO 0.02 K/mm3 (0.00-0.68); EOSINOPHILS PERCENT AUTO 0 % (0-6); Hematocrit 46.3 % (37.0-53.0); IMMATURE GRAN ABSOLUTE AUTO 0.03 K/mm3 (0.00-0.10); IMMATURE GRAN PERCENT AUTO 0 % (0-1); LYMPHOCYTES ABSOLUTE AUTO 1.06 K/mm3 (0.84-5.20); LYMPHOCYTES PERCENT AUTO 10 % (21-46); MONOCYTES ABSOLUTE AUTO 2.07 K/mm3 (0.16-1.47); MONOCYTES PERCENT AUTO 20 % (4-13); Mean Corpuscular HGB 32.8 pg (26.0-34.0); Mean Corpuscular HGB Conc 36.7 g/dL (31.5-36.5); Mean Corpuscular Volume 89 fL (80-100); Mean Platelet Volume 11.1 fL (9.1-12.4); NEUTROPHILS ABSOLUTE AUTO 7.18 K/mm3 (1.96-9.15); NEUTROPHILS PERCENT AUTO 69 % (41-73); Platelet Count 257 K/mm3 (150-400); RDW Standard Deviation 42.9 fL (35.1-46.3); Red Blood Cell Count 5.18 M/mm3 (4.30-5.90)
[2024-05-11 22:50] LABS: Bacteria Mod /hpf; Red Blood Cells, Urine 0-2 /hpf (0-2); Squamous Epithelial Cells Rare /hpf (Few); White Blood Cells, Urine 0-2 /hpf (0-5)
[2024-05-11 23:08] LABS: Albumin/Globulin Ratio 0.7 (0.8-1.8); Bilirubin, Total 0.8 mg/dL (0.1-1.0); Bun/Creatinine Ratio 18.8 (12.0-20.0); Calcium, Blood 9.4 mg/dL (8.5-10.1); Creatinine, Blood 0.64 mg/dL (0.60-1.20); Globulin, Blood 4.4 g/dL (2.2-4.0); Potassium, Blood 2.5 mmol/L (3.5-5.5); Total Protein, Blood 7.4 g/dL (6.4-8.2)
[2024-05-11] MEDS ORDERED: Potassium Chloride 20 MEQ TabCR PO ONE (23:35)
[2024-05-11] MEDS ORDERED: Potassium Chloride 20 MEQ/15 ML UDC PO ONE (23:50)
[2024-05-12 00:22] VITALS: BP 190/109
== END 2024-05-12 00:22 | disposition home or self-care (01) ==
LOC: ER 20:53
PROVIDERS: Emergency Medicine
DX: R33.9 Retention of urine, unspecified (principal); Z79.82 Long term (current) use of aspirin; Z79.899 Other long term (current) drug therapy; J44.9 Chronic obstructive pulmonary disease, unspecified; I10 Essential (primary) hypertension; E78.5 Hyperlipidemia, unspecified
CPT/HCPCS: 51702; 80053; 81001; 85025; 87077; 87086; 87186; 99283-25; A9270